=== PATIENT | male | born 1955 | race African-American/Black ===

== ENCOUNTER 2018-04-17 18:38 | Emergency (ER) | payer OTHER ==
[~2018-04-17] VITALS: Ht 185.4 cm; Wt 109.0 kg
[2018-04-17 19:30] LABS: HEMATOCRIT 38.3 % (38.0-50.0); MCH 28.9 PG (29.0-34.0); MCHC 36.6 G/DL (30.0-36.0); MCV 79.1 FL (86-99); PLATELET COUNT 279 K/uL (156-360); RBC DIS.WIDTH-SD 42.9 % (39-53); RED BLOOD COUNT 4.84 M/uL (4.00-5.50); WHITE BLOOD COUNT 5.9 K/uL (4.1-10.2)
[2018-04-17 19:43] LABS: CHLORIDE 109 mEq/L (99-109); POTASSIUM 4.2 mEq/L (3.7-5.4); SODIUM 141 mEq/L (136-147)
[2018-04-17 19:45] LABS: GLUCOSE 109 mg/dL (70-99)
[2018-04-17 19:49] LABS: CREATININE 1.1 mg/dL (0.6-1.3)
[2018-04-17 19:50] LABS: UREA NITROGEN (BUN) 12 mg/dL (9-23)
[2018-04-17 19:52] LABS: GFR ESTIMATE (CALCULATED) > 59 mL/min/ (58.99-99999)
[2018-04-17 21:54] LABS: TROP-I INTERPRETATION NEGATIVE; TROPONIN-I < 0.01 ng/mL (0.0-0.30)
[2018-04-18] MEDS ORDERED: PROZAC40 MG PO (02:41)
[2018-04-18] MEDS ORDERED: TRILAFON2 MG PO (02:43)
[2018-04-18] MEDS ORDERED: COGENTIN2 MG PO (02:44)
[2018-04-18 03:00] VITALS: BP 149/95
== END 2018-04-18 03:46 | disposition short-term general hospital (02) ==
LOC: EME 18:38
DX: R47.01 Aphasia (principal); R47.81 Slurred speech; R53.1 Weakness; R41.0 Disorientation, unspecified; Z87.891 Personal history of nicotine dependence
CPT/HCPCS: 70450; 71046; 80048; 84484; 85027; 93005; 99281; 99285; J0780; J1200